=== PATIENT | female | born 1940 | race Hispanic/Latino ===

== ENCOUNTER → 2020-10-23 | Outpatient (CLI) | payer OTHER, MEDICARE ==
[~2020-10-23] MED LIST: LIDOCAINE HCL 2% JELLY 5 ML ONE
== END | disposition home or self-care (01) ==
LOC: WHH 09:00
PROVIDERS: ATTEND Podiatrist Foot & Ankle Surgery
DX: E11.621 Type 2 diabetes mellitus with foot ulcer (principal); L97.512 Non-pressure chronic ulcer of other part of right foot with fat layer exposed; S99.821A Other specified injuries of right foot, initial encounter; E11.42 Type 2 diabetes mellitus with diabetic polyneuropathy; E03.9 Hypothyroidism, unspecified; K21.9 Gastro-esophageal reflux disease without esophagitis; I10 Essential (primary) hypertension; M19.90 Unspecified osteoarthritis, unspecified site; X58.XXXA Exposure to other specified factors, initial encounter; Y93.89 Activity, other specified; Y92.89 Other specified places as the place of occurrence of the external cause; Y99.8 Other external cause status
CPT/HCPCS: 97597

== ENCOUNTER → 2020-11-13 | Outpatient (CLI) | payer OTHER, MEDICARE | END | disposition home or self-care (01) | LOC: WHH 08:30 | PROVIDERS: ATTEND Podiatrist Foot & Ankle Surgery | DX: E11.621 Type 2 diabetes mellitus with foot ulcer (principal); L97.512 Non-pressure chronic ulcer of other part of right foot with fat layer exposed; S99.821D Other specified injuries of right foot, subsequent encounter; E11.42 Type 2 diabetes mellitus with diabetic polyneuropathy; E03.9 Hypothyroidism, unspecified; K21.9 Gastro-esophageal reflux disease without esophagitis; I10 Essential (primary) hypertension; M19.90 Unspecified osteoarthritis, unspecified site; X58.XXXD Exposure to other specified factors, subsequent encounter | CPT/HCPCS: 73630; A4450; G0463 ==

== ENCOUNTER → 2020-11-27 | Outpatient (CLI) | payer OTHER, MEDICARE | END | disposition home or self-care (01) | LOC: WHH 08:45 | PROVIDERS: ATTEND Podiatrist Foot & Ankle Surgery | DX: E11.621 Type 2 diabetes mellitus with foot ulcer (principal); L97.512 Non-pressure chronic ulcer of other part of right foot with fat layer exposed; S99.821D Other specified injuries of right foot, subsequent encounter; E11.42 Type 2 diabetes mellitus with diabetic polyneuropathy; E03.9 Hypothyroidism, unspecified; K21.9 Gastro-esophageal reflux disease without esophagitis; I10 Essential (primary) hypertension; M19.90 Unspecified osteoarthritis, unspecified site; X58.XXXD Exposure to other specified factors, subsequent encounter | CPT/HCPCS: G0463 ==